=== PATIENT | male | born 1980 | race Caucasian/White ===

== ENCOUNTER 2023-10-25 13:17 | Emergency (ER) | payer OTHER, SELFPAY ==
[2023-10-25 13:46] VITALS: BP 149/74; PULSE 91; RESP 16; TEMP 36.2; O2SAT 95; BMI 36.2
--- NOTE | 2023-10-25 13:46 | ED_ITS ---
HPI - General Adult General Chief complaint: Urogenital-Male Stated complaint: quest uti Time Seen by Provider: 10/25/23 14:00 Source: patient, RN notes reviewed and old records reviewed Mode of arrival: ambulatory History of Present Illness HPI narrative: 43-year-old male with no significant past medical history presenting to the ED complaining of dysuria, discolored urine/mild blood, & difficulty urinating since yesterday. Admits to taking OTC medication without relief. Denies penile lesions, discharge, concern for STI, abdominal pain, nausea, vomiting, fever/chills, flank pain Related Data Previous Rx's Medication Instructions Recorded cefuroxime axetil 250 mg tablet 250 mg PO BID 7 days #14 tabs 10/25/23 phenazopyridine 200 mg tablet 200 mg PO TID PRN pain 6 doses #6 10/25/23 (Pyridium) tabs Allergies Allergy/AdvReac Type Severity Reaction Status Date / Time No Known Allergies Allergy Mild NKA Verified 10/25/23 13:49 Review of Systems Review of Systems: Constitutional: No Fever, No Chills ENT/Mouth: No Ear Pain, No Nasal Congestion, No sore throat, No Rhinorrhea, No Swallowing Difficulty Cardiovascular: No Chest Pain, No SOB Respiratory: No Cough, No Sputum, No Wheezing Gastrointestinal: No Nausea, No Vomiting, No Diarrhea, No Constipation, No Abdominal pain Genitourinary: + Dysuria, No Urinary Frequency, + Hematuria, No Urinary Incontinence/retention, +urinary difficulty, No Urgency, No Flank Pain Musculoskeletal: No joint pain, No Myalgias Skin: No Skin Lesions, No rash Neuro: No Weakness Yes all other systems are reviewed and are negative Constitutional: Constitutional: Reports as per [facility] Past Medical History Attestation statement: The following information was validated with the patient. Source: old records reviewed Social History Social History Advance Directives: No Advance Directives Information Provided: No Physical Exam ED Vital Signs: Vital Signs - 24 hr 10/25/23 13:46 Temperature 97.2 F Pulse Rate 91 Respiratory Rate 16 Blood Pressure 149/74 H Pulse Oximetry 95 Oxygen Delivery Method Room Air BMI result Body Mass Index 36.2 Const General: cooperative, healthy appearing and no acute distress Orientation/consciousness: patient oriented x3 Limitations: no limitations HENMT Head: Yes normal to inspection and Yes atraumatic Ears: hearing grossly normal bilaterally General nose exam: Normal external nose present Face and sinus: Yes normal facial exam Eyes General: appearance normal, both eyes and all related structures EOM: EOMs intact bilaterally Neck Neck: Yes normal visual inspection and Yes no meningeal signs Resp Effort & Inspection: normal respiratory effort and no respiratory distress Cardio Rate: regular rate GI Inspection: Yes normal to inspection Palpation (GI): Soft to palpation, nontender, no guarding and not rigid General: Yes no CVA tenderness Back/Spine/Pelvis Back: no CVA tenderness Skin Rashes: no rashes Wounds: no wounds Neuro General: patient oriented x3, tone normal and no meningeal signs Cranial nerves: Yes CN's II-XII intact bilaterally Gait exam (Neuro): Normal gait present Extrem General: Yes normal to inspection Course Course Course Narrative: This is a rapid medical exam: Additional HPI, ROS, PE not included below will be deferred to primary provider. Patient is a 43-year-old male presenting to the ED with complaint of burning with urination and difficulty urinating for a day and half. Denies fevers. Plan: CT NG and UA -1449--lab unable to analyze UA due to Azo patient took outpatient and discoloration of UA >> patient given p.o. jug of water and will repeat -1537--repeat UA with positive nitrates and trace leuk esterase. Due to patient being symptomatic will treat with antibiotics and Pyridium Results discussed with patient including worrisome signs and symptoms and strict return precautions, and when to return to the emergency department. They verbalized understanding and feel safe for discharge at this time. Medications Administered Discontinued Medications Generic Name Dose Route Start Last Admin Trade Name Freq PRN Reason Stop Dose Admin Cefuroxime Axetil 250 mg 10/25/23 15:38 10/25/23 15:51 Cefuroxime Axetil 250 Mg Tablet PO 10/25/23 15:39 250 mg ONCE ONE Administration Medical Decision Making Medical Decision Making [facility] Narrative: 43-year-old male with no significant past medical history presenting to the ED complaining of dysuria, discolored urine/mild blood, & difficulty urinating since yesterday. On exam vital signs stable, NAD, nontoxic appearing, abdomen soft/nontender, no CVAT. Concern for UTI vs possible STI. Low suspicion for renal stones/pyelo, testicular torsion or epididymitis/orchitis without pain/tenderness Plan: UA, CT NG Please refer to course for remaining clinical decision making, interpretation of labs/imaging results, and discussions with consultants and/or family members. Differential Diagnosis Differential Diagnoses: The differential diagnosis associated with the presentation includes As above Lab Data MDM Lab Attestation statement: I reviewed the patient's lab results. Labs: Lab Results 10/25/23 10/25/23 Range/Units 14:25 15:01 Urine Color Bennett Bennett Urine Appearance Clear Hazy Urine pH 7.0 6.5 (5.0-9.0) Ur Specific [place] 1.010 1.010 (1.005-1.025) Urine Protein See Note 300 (3+) H (Neg-Trace) mg/dL Urine Glucose (UA) See Note 250 H (Negative) mg/dL Urine Ketones Negative Trace (Negative) mg/dL Urine Blood Trace Trace (Negative) Urine Nitrite See Note Positive H (Negative) Ur Leukocyte Esterase See Note Trace H (Negative) Urine RBC 0-2 3-5 H (0-2) /HPF Urine WBC 0-5 0-5 (0-5) /HPF Ur Squamous Epith Cells 0-2 0-2 (0-2) /HPF Urine Bacteria None Seen None Seen (None Seen) Hyaline Casts 0-2 0-2 (0-2) /LPF External Record Review External record reviewed: Inpatient record, Office record, Outpatient record, Prior outpatient labs, Prior outpatient radiology, Primary care record and Outside ED record Tests considered The following testing was considered but not selected: As above Prescription Management I considered prescription management with: Antibiotic Discharge Plan Discharge Clinical Impression: Urinary tract infection, Cystitis Patient Disposition: Home, Self-Care Instructions: Urinary Tract Infection in Men (DC) Additional Instructions: Ceftin as an antibiotic please take as prescribed for your urine infection Pyridium will help with urinary discomfort. This will turn your urine orange, this is normal Make sure you are drinking plenty of fluids If you develop fever, chills, abdominal pain, or back pain return to the ED Follow-up with your doctor Prescriptions: New cefuroxime axetil 250 mg tablet 250 mg PO BID 7 Days Qty: 14 0RF phenazopyridine [Pyridium] 200 mg tablet 200 mg PO TID PRN (Reason: pain) Qty: 6 0RF Referrals: Physician,None [Primary Care Provider] - 5 days Interventions: ED Discharge Assessment Last Done: 10/25/23 15:53 Discharge Date/Time: 10/25/23 15:53
[2023-10-25 14:33] LABS: Appearance Urine Clear; Color Urine Orange; UMIC TRIGGER UACC YES; Urine Ketones Negative (Negative)
[2023-10-25 14:41] LABS: Urine Blood Trace (Negative)
[2023-10-25 14:42] LABS: Bacteria Urine None Seen (None Seen); Hyaline Casts Urine 0-2 /LPF (0-2); RBC Urine 0-2 /HPF (0-2); Squamous Epithelial Cell Urine 0-2 /HPF (0-2); WBC Urine 0-5 /HPF (0-5)
[2023-10-25 15:21] LABS: Appearance Urine Hazy; Color Urine Orange; Glucose Urine UA 250 mg/dL (Negative); Leukocyte Esterase Urine Trace (Negative); Nitrite Urine Positive (Negative); PH 6.5 (5.0-9.0); UMIC TRIGGER UACC YES; Urine Blood Trace (Negative); Urine Ketones Trace mg/dL (Negative); Urine Protein 300 (3+) mg/dL (Neg-Trace)
[2023-10-25 15:28] LABS: Bacteria Urine None Seen (None Seen); Hyaline Casts Urine 0-2 /LPF (0-2); Squamous Epithelial Cell Urine 0-2 /HPF (0-2); UACC Culture Trigger YES; WBC Urine 0-5 /HPF (0-5)
[2023-10-25] MEDS: cefuroxime axetiL 250 MG TABLET PO (15:51)
[2023-10-25 16:34] LABS: CT PCR NOT DETECTED (Not Detect.); NG PCR NOT DETECTED (Not Detect.)
== END 2023-10-25 15:53 | disposition home or self-care (01) ==
PROVIDERS: Physician Assistant; Registered Nurse Emergency; Emergency Provider Student in an Organized Health Care Education/Training Program
DX: N30.91 Cystitis, unspecified with hematuria (principal)
CPT/HCPCS: 0353U; 81001; 87086; 99282